=== PATIENT | male | born 2000 | race Caucasian/White ===

== ENCOUNTER 2023-03-19 00:28 | Emergency (ER) | payer OTHER ==
[~2023-03-19] VITALS: Ht 182.8 cm; Wt 95.2 kg
[2023-03-19] MEDS ORDERED: LACTATED RINGERS 1,000 ML 1,000 ML IV ONE (01:00)
[2023-03-19] MEDS ORDERED: KETOROLAC INJ 30 MG/ML VIAL IVP ONE (01:00)
[2023-03-19] MEDS ORDERED: ONDANSETRON INJECTION 4 MG/2 ML (SDV) IVP ONE (01:00)
[2023-03-19 01:05] LABS: ALBUMIN 4.9 GM/DL (3.2-4.5); CHLORIDE 102 MMOL/L (98-107); POTASSIUM 2.9 MMOL/L (3.6-5.0); SODIUM 136 MMOL/L (135-145)
[2023-03-19 01:06] LABS: CALCIUM 9.3 MG/DL (8.5-10.1)
[2023-03-19 01:07] LABS: GLUCOSE 135 MG/DL (70-105)
[2023-03-19 01:08] LABS: CARBON DIOXIDE 20 MMOL/L (21-32); TOTAL PROTEIN 7.7 GM/DL (6.4-8.2)
[2023-03-19 01:09] LABS: BILIRUBIN,TOTAL 0.4 MG/DL (0.1-1.0)
[2023-03-19 01:11] LABS: ALKALINE PHOSPHATASE 64 U/L (40-136); CREATININE SERUM 1.43 MG/DL (0.60-1.30); GFR ESTIMATED 70
[2023-03-19 01:12] LABS: BUN/CREATININE RATIO 7
[2023-03-19 01:14] LABS: ALANINE AMINOTRANSFERASE 7 U/L (0-55)
--- NOTE | 2023-03-19 01:21 | ED General ---
General Chief Complaint: Substance Abuse Stated Complaint: POSS ALCOHOL POISONING Nursing Triage Note: PT AMB TO [facility] 3 WITH CC OF VOMITING X 1 HOUR. PT CONCERN FOR ALCOHOL POISONING. PT REPORTS DRINKING MULTIPLE MIX DRINK ON 03/18. PT DENIES ABD PAIN. PT A&OX4 Source of Information: Patient, Other (friends) Exam Limitations: Intoxication History of Present Illness Date Seen by Provider: Mar 19, 2023 Time Seen by Provider: 00:41 Allergies and Home Medications Allergies Coded Allergies: No Known Drug Allergies (Unverified , 03/19/23) Past Tbpizkt-Thwmsu-Cpypmh Hx Patient Social History Use of E-Cig and/or Vaping dev: Yes E-Cig or Vaping type used: Nicotine Use of E-Cig and/or Vaping Ish: Current Everyday User Substance use?: Yes Substance type: Marijuana Substance frequency: Once in a while Alcohol Use?: Yes Alcohol Frequency: Once in a while Past Medical History Surgery/Hospitalization HX: depression Physical Exam Vital Signs Vital Signs - First Documented 03/19/23 00:41 Pulse 97 Resp 22 B/P (MAP) 115/83 (94) Pulse Ox 99 O2 Delivery Room Air Capillary Refill : Less Than 3 Seconds Height, Weight, BMI Height: '" Weight: lbs. oz. kg; 28.00 BMI Method: Progress/Results/Core Measures Suspected Sepsis SIRS Temperature: Pulse: 97 Respiratory Rate: 22 Blood Pressure 115 /83 Mean: 94 Laboratory Tests 03/19/23 00:49: Creatinine 1.43H, Total Bilirubin 0.4 Results/Orders Lab Results Laboratory Tests Test 03/19/23 00:45 03/19/23 00:49 Range/Units Influenza Type A (RT-PCR) Not Detected Not Detecte Influenza Type B (RT-PCR) Not Detected Not Detecte SARS-CoV-2 RNA (RT-PCR) Not Detected Not Detecte Sodium Level 136 135-145 MMOL/L Potassium Level 2.9 L 3.6-5.0 MMOL/L Chloride Level 102 98-107 MMOL/L Carbon Dioxide Level 20 L 21-32 MMOL/L Anion Gap 14 5-14 MMOL/L Blood Urea Nitrogen 10 7-18 MG/DL Creatinine 1.43 H 0.60-1.30 MG/DL Estimat Glomerular Filtration Rate 70 BUN/Creatinine Ratio 7 Glucose Level 135 H 70-105 MG/DL Calcium Level 9.3 8.5-10.1 MG/DL Corrected Calcium 8.5-10.1 MG/DL Magnesium Level 2.0 1.6-2.4 MG/DL Total Bilirubin 0.4 0.1-1.0 MG/DL Aspartate Amino Transf (AST/SGOT) 19 5-34 U/L Alanine Aminotransferase (ALT/SGPT) 7 0-55 U/L Alkaline Phosphatase 64 40-136 U/L Total Protein 7.7 6.4-8.2 GM/DL Albumin 4.9 H 3.2-4.5 GM/DL Serum Alcohol 177 H <10 MG/DL My Orders Orders - REEMA REEVES MD Ed Iv/Invasive Line Start (03/19/23 00:46) Lactated Ringers 1,000 Ml (Lactated Ring (03/19/23 01:00) Ondansetron Injection (Ondansetron Inj (03/19/23 01:00) Ketorolac Injection (Ketorolac Injection (03/19/23 01:00) Alcohol (03/19/23 00:46) Comprehensive Metabolic Panel (03/19/23 00:46) Magnesium (03/19/23 00:46) Covid 19 Inhouse Test (03/19/23 01:17) Influenza A And B By Pcr (03/19/23 01:17) Ns Iv 1000 Ml (Ns Iv 1000 Ml) (03/19/23 01:30) Potassium Cl 10meq/50ml Ivpb (Kcl 10 Meq (03/19/23 01:30) Potassium Cl 10meq/50ml Ivpb (Kcl 10 Meq (03/19/23 01:30) Potassium Cl 10meq/50ml Ivpb (Kcl 10 Meq (03/19/23 01:30) Ns Iv 1000 Ml (Ns Iv 1000 Ml) (03/19/23 02:45) Ns Iv 1000 Ml (Ns Iv 1000 Ml) (03/19/23 02:43) Potassium Chloride (Tablet) (Potassium C (03/19/23 04:15) Medications Given in ED Current Medications Medications Dose Ordered Sig/Felipe Route Start Time Stop Time Status Last Admin Dose Admin Ketorolac Tromethamine 15 mg ONCE ONCE IVP 03/19/23 01:00 03/19/23 01:01 DC 03/19/23 00:57 15 MG Lactated Ringer's 1,000 ml @ 0 mls/hr Q0M ONCE IV 03/19/23 01:00 03/19/23 01:01 DC 03/19/23 00:56 1,000 MLS/HR Ondansetron HCl 8 mg ONCE ONCE IVP 03/19/23 01:00 03/19/23 01:01 DC 03/19/23 00:56 8 MG Potassium Chloride 40 meq ONCE ONCE PO 03/19/23 04:15 03/19/23 04:16 DC 03/19/23 04:47 40 MEQ Potassium Chloride 50 ml @ 50 mls/hr ONCE ONCE IV 03/19/23 01:30 03/19/23 02:29 DC 03/19/23 01:52 50 MLS/HR Potassium Chloride 50 ml @ 50 mls/hr ONCE ONCE IV 03/19/23 01:30 03/19/23 02:29 DC 03/19/23 02:46 50 MLS/HR Potassium Chloride 50 ml @ 50 mls/hr ONCE ONCE IV 03/19/23 01:30 03/19/23 02:29 DC 03/19/23 04:00 50 MLS/HR Sodium Chloride 1,000 ml @ 250 mls/hr Q4H ONCE IV 03/19/23 01:30 03/19/23 05:29 03/19/23 01:53 250 MLS/HR Sodium Chloride 1,000 ml @ 250 mls/hr Q4H ONCE IV 03/19/23 02:45 03/19/23 06:44 03/19/23 02:45 250 MLS/HR Vital Signs/I&O 03/19/23 00:41 Pulse 97 Resp 22 B/P (MAP) 115/83 (94) Pulse Ox 99 O2 Delivery Room Air Capillary Refill : Less Than 3 Seconds Blood Pressure Mean: 94 Departure Impression Primary Impression: Hypokalemia Additional Impressions: Nausea & vomiting Qualified Codes: R11.2 - Nausea with vomiting, unspecified Alcohol intoxication Qualified Codes: F10.929 - Alcohol use, unspecified with intoxication, unspecified Acute headache Qualified Codes: R51.9 - Headache, unspecified Disposition: 01 HOME, SELF-CARE Condition: Improved Departure-Patient Inst. Decision time for Depature: 05:01 Referrals: NO,LOCAL PHYSICIAN (PCP/Family) Primary Care Physician Patient Instructions: ALCOHOL AND SUBSTANCE ABUSE, Hypokalemia Add. Discharge Instructions: Start with a noncarbonated clear liquid diet and gradually advance your diet with small quantities of bland food as tolerated. Avoid drinking alcohol in excess. You should limit your alcohol consumption to 2 drinks per day and no more than 2 days per week. Do not mix alcohol with any other mind altering substances such as marijuana or THC products, sedating medications, etc. Return to the ER if you have worsening symptoms despite following these instructions. All discharge instructions reviewed with patient and/or family. Voiced understanding. REEMA REEVES MD Mar 19, 2023 01:21
[2023-03-19] MEDS ORDERED: POTASSIUM CL 10MEQ/50ML IVPB 50 ML IV ONE ×3 (01:30)
[2023-03-19] MEDS ORDERED: NS IV 1000 ML 1,000 ML IV ONE ×2 (01:30→02:45)
[2023-03-19] MEDS ORDERED: NS IV 1000 ML 1,000 ML ONE (02:43)
[2023-03-19] MEDS ORDERED: POTASSIUM CHLORIDE 10 MEQ TABLET PO ONE (04:15)
[2023-03-19 05:13] VITALS: BP 117/72
== END 2023-03-19 05:13 | disposition home or self-care (01) ==
LOC: ER 00:32
DX: E87.6 Hypokalemia (principal); F10.129 Alcohol abuse with intoxication, unspecified; R51.9 Headache, unspecified; F17.290 Nicotine dependence, other tobacco product, uncomplicated
CPT/HCPCS: 80053; 83735; 87636; 96361; 96374; 96375; 99284; G0480; 36415; 80320